=== PATIENT | male | born 1955 | race Caucasian/White ===

== ENCOUNTER → 2023-07-05 08:19 | Outpatient (REF) | payer OTHER, MEDICARE, SELFPAY | LOC: DHCBC/DCA 08:19 | PROVIDERS: ATTENDING PHYSICIAN Internal Medicine Interventional Cardiology; FAMILY PHYSICIAN Family Medicine | DX: R00.2 Palpitations (principal); I48.0 Paroxysmal atrial fibrillation; I49.9 Cardiac arrhythmia, unspecified | CPT/HCPCS: 78452; 93017; A9500; J2785 ==

== ENCOUNTER → 2023-07-09 15:29 | Outpatient (REF) | payer OTHER, MEDICARE, SELFPAY | LOC: RCS 15:29 | PROVIDERS: ATTENDING PHYSICIAN Internal Medicine Interventional Cardiology; FAMILY PHYSICIAN Family Medicine | DX: R00.2 Palpitations (principal); I48.0 Paroxysmal atrial fibrillation; I49.9 Cardiac arrhythmia, unspecified | CPT/HCPCS: 93306 ==

== ENCOUNTER 2024-02-02 12:40 | Emergency (ER) | payer OTHER, MEDICARE, SELFPAY ==
[2024-02-02 12:52] VITALS: BP 139/66
[2024-02-02 13:09] LABS: % Basophils 0.8 % (0-2); % Eosinophils 2.1 % (0-6); % Immature Granulocytes 0.8 % (0-0.5); % Lymphocytes 25.8 % (20.5-51.1); % Monocytes 8.3 % (1.7-9.3); % Neutrophils 62.2 % (42.2-75.2); Absolute Basophils 0.1 10^3/uL (0-0.2); Absolute Eosinophils 0.2 10^3/uL (0-0.7); Absolute Immature Granulocytes 0.1 10^3/uL (0-0.05); Absolute Lymphocytes 2.7 10^3/uL (1.2-3.4); Absolute Monocytes 0.9 10^3/uL (0.1-0.6); Absolute Neutrophils 6.6 10^3/uL (1.4-6.5); Hematocrit 41.3 % (39.0-52.0); Hemoglobin 14.1 g/dL (13.0-18.0); Mean Corp Hgb Conc. 34.1 g/dL (33.0-37.0); Mean Corpuscular Hgb 31.2 pg (27.0-31.0); Mean Corpuscular Volume 91.4 fL (80.0-94.0); Nucleated Red Blood Cells % 0 % (-); Platelet Count 329 10^3/uL (130-400); Red Blood Cell Count 4.52 10^6/uL (4.70-6.10); Red Cell Dist. Width 12.8 % (11.5-14.5); White Blood Cell Count 10.6 10^3/uL (4.8-10.8)
[2024-02-02 13:26] LABS: ALT (SGPT) 26 U/L (0-50); AST (SGOT) 28 U/L (17-59); Albumin 4.2 g/dl (3.5-5.0); Alkaline Phosphatase 58 U/L (38-126); Blood Urea Nitrogen 10 mg/dl (9-20); Calcium 9.3 mg/dl (8.4-10.2); Carbon Dioxide 23 mmol/L (22-30); Chloride 107 mmol/L (98-107); Glucose 132 mg/dl (70-99); Potassium 4.2 mmol/L (3.5-5.1); Sodium 142 mmol/L (135-145); Total Bilirubin 0.5 mg/dl (0.2-1.3); Total Protein 7.3 g/dl (6.3-8.2); eGFR > 60.00
[2024-02-02 13:31] LABS: Troponin I < 0.012 ng/ml
--- NOTE | 2024-02-02 15:35 | ED.GENMED ---
History of Present Illness
General
Chief Complaint: Chest Pain
Time Seen by Provider: 02/02/24 15:08
History of Present Illness
History of Present Illness:
Patient is a 68-year-old male with history of PFO on Coumadin, prior CVA with intermittent left-sided sensory deficits, hyperlipidemia presenting to the emergency department with chest pain. Patient states that he woke up around 10 AM with
left-sided chest pain that radiated down his arm. This lasted about 30 minutes and then resolve on its own. He walked around got dressed. The pain was not related to exertion. It is not pleuritic. Denies any diaphoresis or nausea. He states
that he has never had exertional chest pain before. Has not had this pain in many years. Does follow with cardiology. Had a normal stress test a few months ago. No history of stents. Has been compliant with his Coumadin. Last INR was 2.42
weeks ago.
Past History
Past History
ED Past Medical History: Hypercholesterolemia and Other (RA on Remecade and Methotrexate, Hypocoagliaton); Negative Asthma, HTN or NIDDM
ED Past Surgical History: Appendectomy
Social History
Tobacco: Former smoker
Alcohol: Occasional
Personal:
Living: with family
Employment: Retired
Family History
Family History: Other (Noncontributory)
Phy Exam
Physical Exam
Physical Exam:
GENERAL: in no acute distress
HEENT: normocephalic, extraocular movements intact, moist oral mucosa
NECK: normal inspection
RESPIRATORY: no respiratory distress, clear to auscultation bilaterally
CARDIOVASCULAR: regular rate and rhythm, 2+ radial pulses bilateral
ABDOMEN/: soft, non-distended, non-tender to palpation, no rebound or guarding
EXTREMITIES: non-tender, no edema/swelling
NEUROLOGIC: awake and alert, moves all extremities
SKIN: warm
Scores
Heart Score for Chest Pain Patients
STEMI patient?: Not applicable
Course
Orders/Labs/Results
Orders:
Orders
02/02/24 12:40
ECG [Electrocardiogram (*1)] Urgent
Reason for Study: Chest Pain
EKG- Treatment ONCE
02/02/24 12:59
Complete Blood Count/With Diff Urgent
Comprehensive Metabolic Panel Urgent
Troponin I Urgent
02/02/24 15:34
EKG- Treatment ONCE
02/02/24 15:35
CR Chest - 2 Views Urgent
Comment:
Reason For Exam: chest pain
02/02/24 16:00
Electrocardiogram (*1) Urgent
Reason for Study: Chest Pain
02/02/24 16:22
Prothrombin Time Urgent
Troponin I Urgent
Abnormal Lab Results
02/02/24 02/02/24
12:59 16:22
RBC 4.52 L 10^6/uL
(4.70-6.10)
MCH 31.2 H pg
(27.0-31.0)
Abs Immat Gran (auto) 0.1 H 10^3/uL
(0-0.05)
Absolute Neuts (auto) 6.6 H 10^3/uL
(1.4-6.5)
Absolute Monos (auto) 0.9 H 10^3/uL
(0.1-0.6)
Immature Gran % 0.8 H %
(0-0.5)
PT 25.9 H Sec
(11.4-14.6)
Glucose 132 H mg/dl
(70-99)
02/02/24 12:59
02/02/24 12:59
Vital Signs
Initial and Last Documented VS:
Initial Vital Signs
Temp Pulse Resp BP Pulse Ox
97.6 F 51 18 139/66 97
02/02/24 12:52 02/02/24 12:52 02/02/24 12:52 02/02/24 12:52 02/02/24 12:52
Last Documented Vital Signs
Temp Pulse Resp BP Pulse Ox
97.6 F 71 18 128/72 95
02/02/24 12:52 02/02/24 17:15 02/02/24 17:15 02/02/24 17:00 02/02/24 17:15
MDM/Problems Addressed
Differential Diagnosis Includes:
Patient is a 68-year-old male with history of PFO on Coumadin, prior CVA with intermittent left-sided sensory deficit presenting to the emergency department with chest pain that has now resolved. Vitals unremarkable and exam is reassuring.
Differential consists of atypical ACS versus esophagitis given that occurred first in the morning. Considered PE though less likely as patient has been compliant with his Coumadin. History and exam not consistent with pneumothorax or dissection.
Blood work obtained prior to elevation is unremarkable. Will obtain delta troponin. Will also obtain chest x-ray. EKG per my interpretation normal sinus rhythm with intermittent premature atrial contraction. Patient does state that he has
follow-up with cardiology next month.
*Critical Care Note
Total Time (30-74mins, 75-104mins- exclusive of procedures): Not Applicable
Update Note
Update Note:
On reevaluation patient resting comfortably. He remains pain-free. His INR is normal. His delta troponin is negative. Chest x-ray per my interpretation with no obvious abnormality. Official read pending. Will discharge patient at this time.
Patient will call cardiology on Sunday to see if there is a sooner appointment. Strict return precautions given.
ED Attending Note
-
Portions of this chart may have been created with voice recognition software.� Occasional wrong word or��sound alike� substitutions may have occurred due to the inherent limitations of voice recognition software.
Discharge Plan
Departure
Patient Disposition: Home (Routine Discharge)
Date of Disposition: 02/02/24
Time of Disposition: 17:32
Patient with high blood pressure during this ER visit?: No
Discharge Problem:
Chest pain
Instructions: Chest pain in adults - ED discharge instructions
Prescriptions:
No Action
atorvastatin 10 MG tablet
10 mg PO HS
warfarin [Jantoven] 7.5 MG tablet
7.5 mg PO SUTUWETHSA@2199
Patient Comments:
fridays 5mg
folic acid 1 MG tablet
1 mg PO HS
fexofenadine [Gladys] 60 MG tablet
60 mg PO HS
acetaminophen [Tylenol Extra Strength] 500 MG tablet
1,000 mg PO Q6HPRN PRN (Reason: fever)
primidone 250 MG tablet
250 mg PO HS
infliximab [Remicade] 100 MG/10 ML recon soln
1 dose IV .Q8W
cholecalciferol (vitamin D3) 1,000 UNITS tablet
1,000 units PO HS
warfarin [Jantoven] 10 MG tablet
10 mg PO MOFR@2199
levofloxacin 500 MG tablet
500 mg PO DAILY Qty: 14 0RF
methotrexate sodium 2.5 MG tablet
2.5 mg PO MOWEFR@2199 Qty: 0 0RF
Rx Instructions:
do not restart this until 10/09/17
Referrals:
Juan Musa, [Family Provider] -
Angela Lisa MD [Active] -
Activity Restrictions/Additional Instructions:
You were evaluated in the Emergency Department today for chest pain. Your evaluation has shown no signs of medical conditions requiring emergent intervention at this time, however we recommend that you follow up with your primary care physician or
your saddle tree stitcher as soon as possible for further testing as an outpatient.
Please schedule an appointment for follow up with your primary care physician as soon as possible.
Return to the Emergency Department if you experience worsening or uncontrolled chest pain, shortness of breath, light headedness, feeling faint, nausea, vomiting, or any other concerning symptoms.
Thank you for choosing us for your care.
Interventions
Interventions:
*Risk Screen - Suicide Last Done: 02/02/24 12:52
*General Assessment Last Done: 02/02/24 12:52
*Neglect/Abuse Screening Last Done: 02/02/24 12:52
ED- Cardiac Assessment Last Done: 02/02/24 17:23
Discharge Date and Time
Print Language: KHMER
[2024-02-02 16:38] LABS: INR 2.36; PT 25.9 Sec (11.4-14.6)
[2024-02-02 16:54] VITALS: BP 121/40
[2024-02-02 17:00] VITALS: BP 128/72
[2024-02-02 17:07] LABS: Troponin I < 0.012 ng/ml
== END 2024-02-02 17:42 | disposition home or self-care (01) ==
LOC: EMR 12:40
PROVIDERS: Emergency Medicine; EMERGENCY PHYSICIAN Student in an Organized Health Care Education/Training Program; FAMILY PHYSICIAN Family Medicine
DX: R07.89 Other chest pain (principal); E78.00 Pure hypercholesterolemia, unspecified; Z87.74 Personal history of (corrected) congenital malformations of heart and circulatory system; I69.898 Other sequelae of other cerebrovascular disease; Z79.01 Long term (current) use of anticoagulants; M06.9 Rheumatoid arthritis, unspecified; Z79.899 Other long term (current) drug therapy; Z87.891 Personal history of nicotine dependence
CPT/HCPCS: 99285; 71046; 80053; 84484; 85025; 85610; 93005

== ENCOUNTER → 2024-04-15 10:56 | Outpatient (REF) | payer OTHER, MEDICARE, SELFPAY | LOC: DHSLP 10:56 | PROVIDERS: ATTENDING PHYSICIAN Internal Medicine Interventional Cardiology; FAMILY PHYSICIAN Family Medicine | DX: G47.33 Obstructive sleep apnea (adult) (pediatric) (principal) | CPT/HCPCS: 95800 ==